=== PATIENT | female | born 1960 | race African-American/Black ===

== ENCOUNTER 2016-09-02 12:33 | Observation (INO) | payer MEDICARE, OTHER ==
[~2016-09-02] VITALS: Ht 144.8 cm; Wt 58.0 kg
[~2016-09-02 12:33] MED LIST: DILTCD300 PO; FLEX10TA PO; LANSO30 PO; LORT5TAB PO; NORV100C PO; REYA150C4 PO; TRUVTAB2 PO; VENL25TA14 PO
[2016-09-02 12:42] VITALS: BP 166/77; PULSE 73; RESP 16; TEMP 98.1; O2SAT 98
[2016-09-02] MEDS ORDERED: SODIUM CHLOR 0.9% 1000 ML INJ 1,000 ML IV SCH ×3 (13:35→17:00)
[2016-09-02] MEDS ORDERED: FAMOTIDINE 20 MG/2 ML VIAL IV PUSH ONE (13:45)
[2016-09-02] MEDS ORDERED: MORPHINE SULFATE 4 MG/ML INJ IV PUSH ONE (13:45)
[2016-09-02] MEDS ORDERED: SODIUM CHLORIDE 0.9% FLUSH 5 ML FLUSH IVF PRN (13:45)
[2016-09-02] MEDS ORDERED: ONDANSETRON HCL 4 MG/2 ML VIAL IVP ONE (13:45)
--- NOTE | 2016-09-02 13:53 | PD ---
HPI Chief Complaint: Abdominal Pain Time Seen by Provider: 13:49 Travel History International Travel<30 days: No Contact w/Intl Traveler<30days: No Traveled to known affect area: No History of Present Illness HPI 56-year-old female that presents to the ED for evaluation of epigastric abdominal pain with nausea and vomiting and diarrhea for the past 3 days. Per patient nothing makes it better or worse. Per patient she can't keep anything down. The patient. She discomfort 6 out of 10. She has not seen anybody for this. Per patient her gallbladder was removed. She still has her appendix. Denies any chest pain or shortness of breath but does the family that she's had some shortness of breath and location for the past year. She does have multiple allergies to different antibiotics. She states that her only medical history is HIV and she states that she is compliant with her medications and that her viral load is negative and her CD4 count is good although she cannot really give me the number. She tells me that she follows with infectious disease from the health Department chronically. She denies any other symptom at this time. Per patient the pain is mainly on the left upper quadrant. Has not taken anything for this as again she cannot keep much down. She denies any recent surgeries. No recent travel. No one else is sick in her house. No radiation of the pain. PFSH Past Medical History Arthritis: No Asthma: No Autoimmune Disease: No Blood Disorders: No Heart Rhythm Problems: No Cancer: No Cardiovascular Problems: No High Cholesterol: No Chemotherapy: No Chest Pain: Yes Congestive Heart Failure: No COPD: No Cerebrovascular Accident: No Diminished Hearing: No Gastrointestinal Disorders: No GERD: No Glaucoma: No Hepatitis: No Hiatal Hernia: No Hypertension: Yes Immune Disorder: Yes (HIV+) Kidney Stones: No Musculoskeletal: Yes (ankle surgery) Neurologic: No Psychiatric: No Reproductive: No Respiratory: No Myocardial Infarction: No Radiation Therapy: No Renal Failure: No Seizures: No Sleep Apnea: No Thyroid Disease: No Ulcer: No PNEUMOCCOCAL Vaccine (Year): 2009 ?: Not Menopausal: Yes : 4 Tubal Ligation: Yes Past Surgical History AICD: No Cholecystectomy: Yes Genitourinary Surgery: No Pacemaker: No Social History Alcohol Use: No (WINE RARELY) Tobacco Use: No Substance Use: No Allergies-Medications (Allergen,Severity, Reaction): Coded Allergies: Macrobid (Verified Allergy, Severe, Swelling, 01/07/12) Nitrofurantoin (Verified Allergy, Severe, Itching, 03/10/12) Septra (Verified Allergy, Severe, Itching, 03/10/12) Sulfa (Verified Allergy, Severe, Itching, 03/10/12) Trimethoprim (Verified Allergy, Severe, Itching, 03/10/12) Aspirin (Verified Adverse Reaction, Severe, VOMITING, 03/10/12) Reported Meds & Prescriptions Reported Meds & Active Scripts Active Reported Crestor (Rosuvastatin Calcium) 10 Mg Tab 10 Mg PO DAILY Aspirin 81 (Aspirin) 81 Mg Tabdr 81 Mg PO DAILY Tribenzor (Rudqvtvssh-Ujuqdmrcrp-Oywgojfyrewunfcmdvx) 20-5-12.5 mg Tab 1 Tab PO DAILY Valacyclovir (Valacyclovir HCl) 500 Mg Tab 500 Mg PO DAILY Lamivudine 300 Mg Tab 300 Mg PO DAILY Tivicay (Dolutegravir Sodium) 50 Mg Tab 50 Mg PO DAILY Reyataz (Atazanavir) 200 Mg Cap 200 Mg PO DAILY Intelence (Etravirine) 200 Mg Tab 200 Mg PO DAILY Review of Systems General / Constitutional: No: Fever, Chills, Weight Gain, Weight Loss, Other Eyes: No: Diploplia, Blurred Vision, Photophobia, Drainage, Redness, Foreign Body Sensation, Pain, Tearing, Blind Spots, Visual changes, Blindness, Other HENT: No: Headaches, Vertigo, Lightheadedness, Sore Throat, Rhinitis, Rhinorrhea, Congestion, Nosebleed, Neck Stiffness, Neck Pain, Masses, Gingival Bleeding, Dental Difficulties, Ear Discharge, Earache, Other Cardiovascular: No: Chest Pain or Discomfort, Palpitations, Irregular Rhythm, Tachycardia, Diaphoresis, Syncope, Dyspnea on exertion, Varicosities, Edema, Cyanosis, Varicosities, Phlebitis, Claudication, Other Respiratory: Positive: Shortness of Breath, No: Cough, Wheezing, Sneezing, Orthopnea, Hemoptysis, Stridor, Night Sweats, Pleuritic Pain, Other Gastrointestinal: Positive: Nausea, Vomiting, Diarrhea, Abdominal Pain, Changes in Bowel Habits, No: Hematemesis, Hematochezia, Constipation, Indigestion, Dysphagia, Loss of Appetite, Other Genitourinary: No: Urgency, Frequency, Dysuria, Nocturia, Hematuria, Decreased Urinary Output, Oliguria, Hesitancy, Dribbling, Incontinence, Pelvic Pain, Flank Pain, Dyspareunia, Discharge, Dysmenorrhea, Menorrhagia, Metorrhagia, Vaginal Bleeding, Other Musculoskeletal: No: Myalgias, Arthralgias, Limited ROM, Weakness, Cramping, Edema, Pain, Atrophy, Other Skin: No Rash, No Itching, No Dryness, No Lumps, No Hives, No Change in Pigmentation, No Change in nails, No Alopecia, No Lesions, No Breast Lumps, No Breast Tenderness, No Breast Swelling, No Other Neurologic: No: Weakness, Dizziness, Syncope, Focal Abnormalities, Coordination Problem, Tremor, Ataxia, Headache, Change in Mentation, Slurred Speech, Paresthesia, Incontinence, Seizures, Sensory Disturbance, Other Psychiatric: No: Anxiety, Depression, Suicidal Ideations, Disorder of Thought, Mood Disorder, Substance Abuse, Homicidal Ideation, Other Endocrine: No: Heat Intolerance, Cold Intolerance, Polyuria, Polydipsia, Other Hematologic/Lymphatic: No: Easy Bruising, Lymph Node Enlargement, Other Physical Exam Narrative GENERAL: SKIN: Warm and dry. HEAD: Atraumatic. Normocephalic. EYES: Pupils equal and round. No scleral icterus. No injection or drainage. ENT: No nasal bleeding or discharge. Mucous membranes pink and moist. Tongue is midline. No uvula deviation. NECK: Trachea midline. No JVD. CARDIOVASCULAR: Regular rate and rhythm. No murmurs, S3, S4. RESPIRATORY: No accessory muscle use. Clear to auscultation. Breath sounds equal bilaterally. GASTROINTESTINAL: Abdomen soft, patient has reproducible tenderness to palpation on the epigastric area. Mainly on the left upper quadrant. Nondistended. Hepatic and splenic margins not palpable. MUSCULOSKELETAL: Extremities without clubbing, cyanosis, or edema. No obvious deformities. Full range of motion of the upper and lower extremities bilaterally. 2+ pulses bilaterally. NEUROLOGICAL: Awake and alert. No obvious cranial nerve deficits. Motor grossly within normal limits. Five out of 5 muscle strength in the arms and legs. Normal speech. PSYCHIATRIC: Appropriate mood and affect; insight and judgment normal. Data Data Last Documented VS Vital Signs Date Time Temp Pulse Resp B/P Pulse Ox O2 Delivery O2 Flow Rate FiO2 09/02/16 13:40 18 09/02/16 12:42 98.1 73 166/77 98 Orders Complete Blood Count With Diff (09/02/16 13:35) Comprehensive Metabolic Panel (09/02/16 13:35) Lipase (09/02/16 13:35) Urinalysis - C+S If Indicated (09/02/16 13:35) Iv Access Insert/Monitor (09/02/16 13:35) Sodium Chlor 0.9% 1000 Ml Inj (Ns 1000 M (09/02/16 13:35) Sodium Chloride 0.9% Flush (Ns Flush) (09/02/16 13:45) Chest, Single Ap (09/02/16 13:42) Morphine Inj (Morphine Inj) (09/02/16 13:45) Ondansetron Inj (Zofran Inj) (09/02/16 13:45) Famotidine Inj (Pepcid Inj) (09/02/16 13:45) Ct Abd/Pel W Iv Contrast(Rout) (09/02/16 ) Iohexol 350 Inj (Omnipaque 350 Inj) (09/02/16 15:16) Pantoprazole Inj (Protonix Inj) (09/02/16 17:00) Pantoprazole Inj (Protonix Inj) (09/02/16 17:00) Sodium Chlor 0.9% 1000 Ml Inj (Ns 1000 M (09/02/16 16:04) Admit Order (Ed Use Only) (09/02/16 16:18) Labs Laboratory Tests Test 09/02/16 13:45 White Blood Count 4.8 TH/MM3 Red Blood Count 3.97 MIL/MM3 Hemoglobin 12.9 GM/DL Hematocrit 38.7 % Mean Corpuscular Volume 97.4 FL Mean Corpuscular Hemoglobin 32.5 PG Mean Corpuscular Hemoglobin 33.4 % Concent Red Cell Distribution Width 13.6 % Platelet Count 251 TH/MM3 Mean Platelet Volume 9.2 FL Neutrophils (%) (Auto) 44.6 % Lymphocytes (%) (Auto) 41.5 % Monocytes (%) (Auto) 10.3 % Eosinophils (%) (Auto) 3.2 % Basophils (%) (Auto) 0.4 % Neutrophils # (Auto) 2.2 TH/MM3 Lymphocytes # (Auto) 2.0 TH/MM3 Monocytes # (Auto) 0.5 TH/MM3 Eosinophils # (Auto) 0.2 TH/MM3 Basophils # (Auto) 0.0 TH/MM3 CBC Comment DIFF FINAL Differential Comment Urine Color YELLOW Urine Turbidity HAZY Urine pH 5.5 Urine Specific Borden 1.026 Urine Protein TRACE mg/dL Urine Glucose (UA) NEG mg/dL Urine Ketones 10 mg/dL Urine Occult Blood TRACE Urine Nitrite NEG Urine Bilirubin NEG Urine Urobilinogen LESS THAN 2.0 MG/DL Urine Leukocyte Esterase LARGE Urine RBC 5 /hpf Urine WBC 8 /hpf Urine Squamous Epithelial 7 /hpf Cells Urine Bacteria OCC /hpf Urine Mucus FEW /lpf Microscopic Urinalysis Comment CULT NOT INDICATED Sodium Level 140 MEQ/L Potassium Level 3.4 MEQ/L Chloride Level 104 MEQ/L Carbon Dioxide Level 28.8 MEQ/L Anion Gap 7 MEQ/L Blood Urea Nitrogen 17 MG/DL Creatinine 1.00 MG/DL Estimat Glomerular Filtration 69 ML/MIN Rate Random Glucose 80 MG/DL Calcium Level 9.2 MG/DL Total Bilirubin 0.3 MG/DL Aspartate Amino Transf 28 U/L (AST/SGOT) Alanine Aminotransferase 29 U/L (ALT/SGPT) Alkaline Phosphatase 81 U/L Total Protein 7.8 GM/DL Albumin 3.8 GM/DL Lipase 84 U/L [facility] Medical Decision Making Medical Screen Exam Complete: Yes Emergency Medical Condition: Yes Medical Record Reviewed: Yes Interpretation(s) CBC & BMP Diagram 09/02/16 13:45 LFTs and lipase within normal limits. Urine shows signs of UTI Last Impressions Chest X-Ray 09/02/16 1342 Signed Impressions: Service Date/Time: August 13:57 - CONCLUSION: Underinflation with atelectasis at the lung bases. Otherwise, no acute finding is identified. Mao Marion MD Abdomen/Pelvis CT 09/02/16 0000 Signed Impressions: Service Date/Time: August 14:48 - CONCLUSION: 1. There is wall thickening and submucosal edema involving the duodenal bulb and proximal second portion of the duodenum. Findings could represent an inflammatory or infectious process. 2. There are 2 left uterine masses measuring up to 14 mm. Although incompletely characterized on this study the appearance is suggestive of uterine fibroids. Mao Marion MD Differential Diagnosis Abdominal pain versus gastroenteritis versus gastritis versus epigastric pain versus peptic ulcer disease versus normal exam Narrative Course 56-year-old female that presents to the ED for evaluation of abdominal pain. Patient was properly examined and was found to have signs and symptoms consistent with appears to be gastritis versus gastroenteritis. Labs and imaging will be ordered. Labs and imaging showed possible UTI with duodenitis. Case was discussed in my attending who recommends speaking with GI. I spoke with Dr. Collins from GI who was made aware of all findings including HIV positive and recommends started on PPI any patient is stable he can follow-up outpatient. Patient was reassessed and still feels pretty lousy per patient and cannot keep anything down. Case discussed with my attending who agrees with admission secondary to his discomfort. Patient was started on PPIs. Hepatitis was patient he agreed to admission. Procedures EKG Prior to Arrival: No Diagnosis Primary Impression: Duodenitis Additional Impressions: Human immunodeficiency virus (HIV) positive Vomiting Qualified Code: R11.14 - Bilious vomiting with nausea Admitting Information Admitting Physician Requests: Observation Adalberto Kapoor Sep 02, 2016 13:53
[2016-09-02 14:08] LABS: AUTOMATED NEUTROPHIL # 2.2 TH/MM3 (1.8-7.7); BASOPHIL % 0.4 % (0.0-2.0); EOSINOPHIL # 0.2 TH/MM3 (0-0.4); EOSINOPHIL % 3.2 % (0.0-4.0); HEMATOCRIT 38.7 % (35.0-46.0); HEMO FLAGS DIFF FINAL; LYMPH % 41.5 % (9.0-44.0); MEAN CELL VOLUME 97.4 FL (80.0-100.0); MEAN CORPUSCULAR HEMOGLOBIN 32.5 PG (27.0-34.0); MEAN CORPUSCULAR HGB CONC 33.4 % (32.0-36.0); MONO % 10.3 % (0.0-8.0); NEUT % 44.6 % (16.0-70.0); PLATELET COUNT 251 TH/MM3 (150-450); RED BLOOD COUNT 3.97 MIL/MM3 (4.00-5.30); RED CELL DISTRIBUTION WIDTH 13.6 % (11.6-17.2); WHITE BLOOD COUNT 4.8 TH/MM3 (4.0-11.0)
[2016-09-02 14:15] LABS: BACTERIA, URINE OCC /hpf; BLOOD, URINE TRACE (NEG); COMMENT (UR) CULT NOT INDICATED; CULTURE IF INDICATED CULT NOT INDICATED; GLUCOSE,URINE NEG (NEG); KETONE, URINE 10 mg/dL (NEG); MUCUS URINE FEW /lpf (OCC); NITRITE,URINE NEG (NEG); PH, URINE 5.5 (5.0-8.5); SQUAMOUS EPITHELIAL CELL URINE 7 /hpf (0-5); URINE COLOR YELLOW (YELLW/STRAW)
[2016-09-02 14:24] LABS: ALT (GPT) 29 U/L (10-53); ANION GAP 7 MEQ/L (5-15); AST (GOT) 28 U/L (15-37); BICARBONATE 28.8 MEQ/L (21.0-32.0); BLOOD UREA NITROGEN 17 MG/DL (7-18); CHLORIDE 104 MEQ/L (98-107); GLOMERULAR FILTRATION RATE 69 ML/MIN (>89); POTASSIUM 3.4 MEQ/L (3.5-5.1); SODIUM (NA) 140 MEQ/L (136-145)
[2016-09-02 14:26] LABS: ALKALINE PHOSPHATASE 81 U/L (45-117); TOTAL BILIRUBIN ADULT 0.3 MG/DL (0.2-1.0)
--- NOTE | 2016-09-02 14:56 | RADRPT ---
EXAM DATE/TIME: 09/02/2016 13:57 [facility] COMPARISON: CHEST SINGLE AP, October 02, 2011, 21:19. INDICATIONS : Short of breath. MEDICAL HISTORY : Hypertension. SURGICAL HISTORY : None. ENCOUNTER: Initial ACUITY: 1 day PAIN SCORE: 0/10 LOCATION: Bilateral chest FINDINGS: Portable AP view of the chest demonstrates a normal-sized cardiac silhouette. No effusion, consolidat ion, or pneumothorax is visualized. The bones and soft tissues demonstrate no acute abnormality. Lung s are underinflated there are linear opacities at both lung bases. CONCLUSION: Underinflation with atelectasis at the lung bases. Otherwise, no acute finding is identified. Mao Marion MD on September 02, 2016 at 14:54 Board Certified Radiologist. This report was verified electronically.
[2016-09-02] MEDS ORDERED: IOHEXOL 350 MG/ML 10 ML VIAL (for RAD DIAG) IV ONE (15:16)
--- NOTE | 2016-09-02 15:40 | RADRPT ---
EXAM DATE/TIME: 09/02/2016 14:48 [facility] COMPARISON: No previous studies available for comparison. INDICATIONS : Epigastric pain with nausea and vomiting. IV CONTRAST: 92 cc Omnipaque 350 (iohexol) IV ORAL CONTRAST: No oral contrast ingested. RADIATION DOSE: 9.96 CTDIvol (mGy) MEDICAL HISTORY : Hypertension. SURGICAL HISTORY : Cholecystectomy. Tubal ligation. ENCOUNTER: Initial ACUITY: 3 days PAIN SCALE: 5/10 LOCATION: Bilateral upper quadrant TECHNIQUE: Volumetric scanning of the abdomen and pelvis was performed. Using automated exposure control and ad justment of the mA and/or kV according to patient size, radiation dose was kept as low as reasonably achievable to obtain optimal diagnostic quality images. FINDINGS: LOWER LUNGS: The visualized lower lungs are clear. LIVER: Homogeneous density with a 5 mm low-density lesion in the right posterior liver that is too small to characterize. There is no dilation of the biliary tree. Gallbladder is not visualized. SPLEEN: Normal size without lesion. PANCREAS: Within normal limits. KIDNEYS: Normal in size and shape. There is no mass, stone or hydronephrosis. There is a 4 mm low-density les ion in the lower pole the right kidney that is too small to characterize. ADRENAL GLANDS: Within normal limits. VASCULAR: There is no aortic aneurysm. There is mild atherosclerotic disease. BOWEL/MESENTERY: There is wall thickening and submucosal edema of the duodenal bulb and proximal second portion of the duodenum. Small hiatal hernia is present. There is no free intraperitoneal air. Trace free fluid is present within the pelvis. ABDOMINAL WALL: Within normal limits. RETROPERITONEUM: There is no lymphadenopathy. BLADDER: No wall thickening or mass. REPRODUCTIVE: There are 2 hypoenhancing masses in the left uterus, one in the fundus and the other in the left body measuring 14 mm and 9 mm, respectively. No adnexal abnormality is seen. INGUINAL: There is no lymphadenopathy or hernia. MUSCULOSKELETAL: No acute osseous abnormality is identified. CONCLUSION: 1. There is wall thickening and submucosal edema involving the duodenal bulb and proximal second port ion of the duodenum. Findings could represent an inflammatory or infectious process. 2. There are 2 left uterine masses measuring up to 14 mm. Although incompletely characterized on this study the appearance is suggestive of uterine fibroids. Mao Marion MD on September 02, 2016 at 15:32 Board Certified Radiologist. This report was verified electronically.
[2016-09-02] MEDS ORDERED: DOLU1TAB PO (16:13)
[2016-09-02] MEDS ORDERED: ROSU10 PO (16:13)
[2016-09-02] MEDS ORDERED: LAMI1TAB8 PO (16:13)
[2016-09-02] MEDS ORDERED: TRIBTAB PO (16:13)
[2016-09-02] MEDS ORDERED: ATAZ200 PO (16:13)
[2016-09-02] MEDS ORDERED: INTE200T PO (16:13)
[2016-09-02] MEDS ORDERED: VALA500T PO (16:13)
[2016-09-02] MEDS ORDERED: ASPI-110 PO (16:13)
[2016-09-02] MEDS ORDERED: POTASSIUM CHLORIDE 10 MEQ CONTROLLED RELEASE TAB PO ONE (16:30)
[2016-09-02] MEDS ORDERED: SODIUM CHLORIDE 0.9% FLUSH 5 ML FLUSH FLUSH PRN (16:30)
[2016-09-02] MEDS ORDERED: SENNOSIDES 8.6 MG TAB PO PRN (16:30)
[2016-09-02] MEDS ORDERED: BISACODYL 10 MG SUPP PR PRN (16:30)
[2016-09-02] MEDS ORDERED: METOCLOPRAMIDE HCL 10 MG/2 ML VIAL IV PUSH PRN (16:30)
[2016-09-02] MEDS ORDERED: PROCHLORPERAZINE 25 MG SUPP PR PRN (16:30)
[2016-09-02] MEDS ORDERED: ONDANSETRON HCL 4 MG/2 ML VIAL IVP PRN (16:30)
[2016-09-02] MEDS ORDERED: ACETAMINOPHEN 325 MG TAB PO PRN (16:30)
[2016-09-02] MEDS: PANTOPRAZOLE INJ 80 MG in SODIUM CHLORIDE 0.9% INJ 100 ML IV SCH (16:52)
[2016-09-02] MEDS: cefTRIAXone INJ 1,000 MG in SODIUM CHLORIDE 0.9% INJ 100 ML IV SCH (16:57)
[2016-09-02] MEDS: PANTOPRAZOLE SODIUM 40 MG VIAL IV PUSH SCH (16:58)
[2016-09-02] MEDS: ENOXAPARIN SODIUM 40 MG/0.4 ML SYRINGE SQ SCH (16:59)
[2016-09-02] MEDS ORDERED: PANTOPRAZOLE INJ 80 MG in SODIUM CHLORIDE 0.9% INJ 35 ML IV ONE (17:00)
[2016-09-02 17:01] VITALS: BP 123/64; PULSE 87; RESP 18; O2SAT 99
--- NOTE | 2016-09-02 17:19 | HHI.HP ---
HPI Service [facility] Primary Care Physician Vijay Herrera MD Admission Diagnosis duodenitis, intractable vomit and nausea, HIV Diagnoses: Chief Complaint: Abdominal pain, nausea vomiting Travel History International Travel<30 Days: No Contact w/Intl Traveler <30 Da: No Traveled to Known Affected Are: No History of Present Illness Patient is a 56-year-old female with primary medical history of hypertension, HIV who came in to the hospital for further evaluation of abdominal pain, nausea vomiting for 3 days. States she also have some diarrhea 2 days ago with vomiting. Otherwise her stool yesterday was regular small amount. Patient complains of abdominal pain all throughout left upper quadrant , right upper quadrant rated 10 over 10 described as spasms then becomes achy and dull, constant, nonradiating, aggravated by movement, does not get relief by rest. Patient states that she has gallbladder removal, she still has her appendix. Patient states that she is compliant with her HIV medication, and her viral load is negative and CD4 count is about 250 that was done by her infectious disease doctor 6 months ago. She has recently visited infectious disease doctor last Tuesday and presented her abdominal pain symptoms it wasn't as bad as it is right now. States that she is unable to keep anything down that she did not eat for about almost 3 days, she also was not able to take her HIV medication for 2 days. Denies SOB/ dyspnea. Denies chest pain, palpitations, headaches, dizziness. Denies fevers, chills. Denies dysuria, hematuria. Labs reviewed. CBC unremarkable except for slightly low RBC at 3.97. Monitor percentage 10.3. CMP reviewed slightly low potassium of 3.4. Estimated GFR 69. UA large leukoesterase, few urine mucus, Occ urine bacteria, trace occult blood, urine ketones 10 CT of the abdomen and pelvis showed there is a wall thickening and submucosal edema involving the duodenal bulb and proximal second portion of the duodenum. Findings could represent an inflammatory or infectious process. There are 2 left uterine masses measuring up to 14 mm. Although incompletely characterized on this study does appearance is suggestive of uterine fibroids. Chest x-ray showed underinflation with atelectasis at the lung bases. Otherwise , no acute findings identified. Review of Systems Except as stated in HPI: all other systems reviewed are Neg Past Family Social History Past Medical History HIV HTN Past Surgical History Gallbladder removal surgery Reported Medications Crestor (Rosuvastatin Calcium) 10 Mg Tab 10 Mg PO DAILY Aspirin 81 (Aspirin) 81 Mg Tabdr 81 Mg PO DAILY Tribenzor (Yupavgzdbn-Tgzqqeymgr-Uephjruofdycxcfamfz) 20-5-12.5 mg Tab 1 Tab PO DAILY Valacyclovir (Valacyclovir HCl) 500 Mg Tab 500 Mg PO DAILY Lamivudine 300 Mg Tab 300 Mg PO DAILY Tivicay (Dolutegravir Sodium) 50 Mg Tab 50 Mg PO DAILY Reyataz (Atazanavir) 200 Mg Cap 200 Mg PO DAILY Intelence (Etravirine) 200 Mg Tab 200 Mg PO DAILY Allergies: Coded Allergies: Macrobid (Verified Allergy, Severe, Swelling, 01/07/12) Nitrofurantoin (Verified Allergy, Severe, Itching, 03/10/12) Septra (Verified Allergy, Severe, Itching, 03/10/12) Sulfa (Verified Allergy, Severe, Itching, 03/10/12) Trimethoprim (Verified Allergy, Severe, Itching, 03/10/12) Aspirin (Verified Adverse Reaction, Severe, VOMITING, 03/10/12) Active Ordered Medications Current Medications Medications (Trade) Dose Ordered Sig/Leydi Route Start Time Stop Time Status Last Admin Pantoprazole Sodium 80 mg/ Sodium Chloride 35 ml @ 420 mls/hr ONCE ONCE IV 09/02/16 17:00 09/02/16 17:04 Pantoprazole Sodium 80 mg/ Sodium Chloride 100 ml @ 10 mls/hr Q10H IV 09/02/16 17:00 Sodium Chloride 1,000 ml @ 1,000 mls/hr Q1H IV 09/02/16 16:04 09/02/16 17:03 (NS 1000 ml Inj) 1,000 ml @ 100 mls/hr Q10H IV 09/02/16 17:00 (NS Flush) 2 ml UNSCH PRN FLUSH 09/02/16 16:30 (NS Flush) 2 ml BID FLUSH 09/02/16 21:00 (Tylenol) 650 mg Q4H PRN PO 09/02/16 16:30 (Zofran Inj) 4 mg Q6H PRN IVP 09/02/16 16:30 (Compazine Supp) 25 mg Q12H PRN VT 09/02/16 16:30 (Dulcolax Supp) 10 mg DAILY PRN VT 09/02/16 16:30 (Colace) 100 mg Q12H PO 09/02/16 18:00 (Senokot) 17.2 mg Q12H PRN PO 09/02/16 16:30 Enoxaparin Sodium 40 mg 40 mg Q24H SQ 09/02/16 17:00 (Rocephin Inj/NS Inj) 100 ml @ 200 mls/hr Q24H IV 09/02/16 17:00 (Protonix Inj) 40 mg Q24H IV PUSH 09/02/16 17:00 (Reglan Inj) 5 mg Q8H PRN IV PUSH 09/02/16 16:30 (Ecotrin Ec) 81 mg DAILY PO 09/03/16 09:00 (Reyataz) 200 mg DAILY PO 09/03/16 09:00 (Epivir) 300 mg DAILY PO 09/03/16 09:00 (Valtrex) 500 mg DAILY PO 09/03/16 09:00 Non-Formulary Medication 1 tab DAILY PO 09/03/16 09:00 UNV (Lipitor) 20 mg DAILY PO 09/03/16 09:00 (Intelence) 200 mg DAILY PO 09/03/16 09:00 Family History Sister has diabetes Brother has heart attacks 3 Social History Denies alcohol use Denies tobacco use Denies illicit drug use Physical Exam Vital Signs Vital Signs Date Time Temp Pulse Resp B/P Pulse Ox O2 Delivery O2 Flow Rate FiO2 09/02/16 13:40 18 09/02/16 12:42 98.1 73 16 166/77 98 Physical Exam GENERAL: This is a pleasant thin appearing lady, in no apparent distress, but in pain. SKIN: No rashes, ecchymoses or lesions. Cool and dry. HEAD: Atraumatic. Normocephalic. No temporal or scalp tenderness. EYES: Pupils equal round and reactive. Extraocular motions intact. No scleral icterus. No injection or drainage. ENT: Nose without bleeding. Throat without erythema. Uvula midline. Airway patent. Dry oral mucosa NECK: Trachea midline. No JVD or lymphadenopathy. Supple, nontender, no meningeal signs. CARDIOVASCULAR: Regular rate and rhythm without murmurs, gallops, or rubs. RESPIRATORY: Clear to auscultation. Breath sounds equal bilaterally. No wheezes , rales, or rhonchi. GASTROINTESTINAL: Abdomen soft, tenderness to light palpation left upper quadrant to right upper quadrant, nondistended. Bowel sounds active 4. MUSCULOSKELETAL: Extremities without clubbing, cyanosis, or edema. No joint tenderness, effusion, or edema noted. No calf tenderness. Negative Homans sign bilaterally. NEUROLOGICAL: Awake and alert. Oriented 3. Motor and sensory grossly within normal limits. No focal neuro deficit. Normal speech. Laboratory Laboratory Tests Test 09/02/16 13:45 White Blood Count 4.8 Red Blood Count 3.97 Hemoglobin 12.9 Hematocrit 38.7 Mean Corpuscular Volume 97.4 Mean Corpuscular Hemoglobin 32.5 Mean Corpuscular Hemoglobin 33.4 Concent Red Cell Distribution Width 13.6 Platelet Count 251 Mean Platelet Volume 9.2 Neutrophils (%) (Auto) 44.6 Lymphocytes (%) (Auto) 41.5 Monocytes (%) (Auto) 10.3 Eosinophils (%) (Auto) 3.2 Basophils (%) (Auto) 0.4 Neutrophils # (Auto) 2.2 Lymphocytes # (Auto) 2.0 Monocytes # (Auto) 0.5 Eosinophils # (Auto) 0.2 Basophils # (Auto) 0.0 CBC Comment DIFF FINAL Differential Comment Urine Color YELLOW Urine Turbidity HAZY Urine pH 5.5 Urine Specific [place] 1.026 Urine Protein TRACE Urine Glucose (UA) NEG Urine Ketones 10 Urine Occult Blood TRACE Urine Nitrite NEG Urine Bilirubin NEG Urine Urobilinogen LESS THAN 2.0 Urine Leukocyte Esterase LARGE Urine RBC 5 Urine WBC 8 Urine Squamous Epithelial 7 Cells Urine Bacteria OCC Urine Mucus FEW Microscopic Urinalysis Comment CULT NOT INDICATED Sodium Level 140 Potassium Level 3.4 Chloride Level 104 Carbon Dioxide Level 28.8 Anion Gap 7 Blood Urea Nitrogen 17 Creatinine 1.00 Estimat Glomerular Filtration 69 Rate Random Glucose 80 Calcium Level 9.2 Total Bilirubin 0.3 Aspartate Amino Transf 28 (AST/SGOT) Alanine Aminotransferase 29 (ALT/SGPT) Alkaline Phosphatase 81 Total Protein 7.8 Albumin 3.8 Lipase 84 Result Diagram: 09/02/16 1345 09/02/16 1345 Imaging Last Impressions Chest X-Ray 09/02/16 1342 Signed Impressions: Service Date/Time: August 13:57 - CONCLUSION: Underinflation with atelectasis at the lung bases. Otherwise, no acute finding is identified. Mao Marion MD Abdomen/Pelvis CT 09/02/16 0000 Signed Impressions: Service Date/Time: August 14:48 - CONCLUSION: 1. There is wall thickening and submucosal edema involving the duodenal bulb and proximal second portion of the duodenum. Findings could represent an inflammatory or infectious process. 2. There are 2 left uterine masses measuring up to 14 mm. Although incompletely characterized on this study the appearance is suggestive of uterine fibroids. Mao Marion MD Assessment and Plan Problem List: (1) Human immunodeficiency virus (HIV) positive ICD Code: V08 Status: Chronic (2) Vomiting ICD Code: R11.10 Status: Acute (3) Duodenitis ICD Code: K29.80 Status: Acute (4) HLD (hyperlipidemia) ICD Code: E78.5 Status: Acute (5) HTN (hypertension) ICD Code: I10 Status: Acute Assessment and Plan Patient is a 56-year-old female with primary medical history of hypertension, HIV who came in to the hospital for further evaluation of abdominal pain, nausea vomiting for 3 days. States she also have some diarrhea 2 days ago with vomiting. Otherwise her stool yesterday was regular small amount. Patient complains of abdominal pain all throughout left upper quadrant , right upper quadrant rated 10 over 10 described as spasms then becomes achy and dull, constant, nonradiating, aggravated by movement, does not get relief by rest. Patient states that she has gallbladder removal, she still has her appendix. Patient states that she is compliant with her HIV medication, and her viral load is negative and CD4 count is about 250 that was done by her infectious disease doctor 6 months ago. She has recently visited infectious disease doctor last Tuesday and presented her abdominal pain symptoms it wasn't as bad as it is right now. States that she is unable to keep anything down that she did not eat for about almost 3 days, she also was not able to take her HIV medication for 2 days. Abdominal pain, nausea/vomiting duodenitis - pantoprazole 80 mg IV bolus, start pantoprazole 8mg/hr - Reglan 5 mg every 8 hours IV when necessary - Zofran 4 mg every 6 hours when necessary - Compazine 25 mg VT when necessary - NS + 20MEQ K+ 100ml/hr - Consult GI appreciate input. Urinary tract infection - UA positive - Patient was given ceftriaxone in the ED, we will continue ceftriaxone for now. Hypokalemia - potassium replaced - Check BMP marcelino HTN - HCTZ 12.5 mg. monitor BP trend. HIV - continue home meds for HIV HLD - atorvastatin 20 mg daily DVT prop Lovenox Written by Natalia Ascencio, acting as scribe for Dr. Estrella on 09/02/16 at 17:05. The documentation accurately reflects the work performed [id number] by me Dr. Estrella on 09/02/16 at 17:05. Code Status Full code Discussed Condition With Patient, nursing, ED attending Problem Qualifiers (1) Vomiting: Qualified Code: R11.14 - Bilious vomiting with nausea Natalia Arreaga Sep 02, 2016 17:19 Avril Estrella MD Sep 02, 2016 20:47
[2016-09-02] MEDS ORDERED: NS + KCL 20 MEQ INJ 1,000 ML IV SCH (17:30)
[2016-09-02] MEDS: SODIUM CHLOR 0.9% 1000 ML INJ 1,000 ML IV SCH (17:30)
[2016-09-02 17:50] VITALS: BP 136/78; TEMP 98.3
[2016-09-02 17:58] VITALS: BP 132/68; PULSE 80; RESP 17; TEMP 98.4; O2SAT 97
[2016-09-02] MEDS: DOCUSATE SODIUM 100 MG CAP PO SCH (17:59)
[2016-09-02] MEDS: SODIUM CHLORIDE 0.9% FLUSH 5 ML FLUSH FLUSH SCH (21:00)
[2016-09-02 21:36] VITALS: BP 133/74; PULSE 91; RESP 18; TEMP 98.6; O2SAT 94
[2016-09-02 21:41] VITALS: O2SAT 98
[2016-09-03 02:46] VITALS: BP 129/83; PULSE 81; RESP 18; TEMP 98.4; O2SAT 96
[2016-09-03] MEDS: PANTOPRAZOLE INJ 80 MG in SODIUM CHLORIDE 0.9% INJ 100 ML IV SCH ×3 (03:00→23:00)
[2016-09-03] MEDS: SODIUM CHLOR 0.9% 1000 ML INJ 1,000 ML IV SCH ×3 (03:30→23:30)
[2016-09-03] MEDS: DOCUSATE SODIUM 100 MG CAP PO SCH ×2 (06:00→17:12)
[2016-09-03 07:47] LABS: AUTOMATED NEUTROPHIL # 2.4 TH/MM3 (1.8-7.7); BASOPHIL % 0.1 % (0.0-2.0); EOSINOPHIL # 0.1 TH/MM3 (0-0.4); EOSINOPHIL % 1.6 % (0.0-4.0); HEMATOCRIT 33.2 % (35.0-46.0); HEMO FLAGS DIFF FINAL; LYMPH % 35.9 % (9.0-44.0); LYMPHOCYTE # 1.6 TH/MM3 (1.0-4.8); MEAN CORPUSCULAR HEMOGLOBIN 32.5 PG (27.0-34.0); MEAN CORPUSCULAR HGB CONC 33.6 % (32.0-36.0); MONO % 10.2 % (0.0-8.0); NEUT % 52.2 % (16.0-70.0); PLATELET COUNT 233 TH/MM3 (150-450); RED BLOOD COUNT 3.42 MIL/MM3 (4.00-5.30); RED CELL DISTRIBUTION WIDTH 13.7 % (11.6-17.2); WHITE BLOOD COUNT 4.6 TH/MM3 (4.0-11.0)
--- NOTE | 2016-09-03 07:52 | HHI.PR ---
Subjective Remarks Says antiemetics helped some and was able to eat last night. Still with abdominal pain. She is NPO as plan for EGD. Doesn't feel nauseated and did not vomit. Did not have a BM. Plan for EGD. Objective Vitals Vital Signs Date Time Temp Pulse Resp B/P Pulse Ox O2 Delivery O2 Flow Rate FiO2 09/03/16 02:46 98.4 81 18 129/83 96 09/02/16 21:41 98 09/02/16 21:36 98.6 91 18 133/74 94 09/02/16 17:58 98.4 80 17 132/68 97 09/02/16 17:50 98.3 78 18 136/78 98 09/02/16 17:01 87 18 123/64 99 Room Air 09/02/16 13:40 18 09/02/16 12:42 98.1 73 16 166/77 98 Result Diagram: 09/03/16 0557 09/02/16 1345 Imaging Last Impressions Chest X-Ray 09/02/16 1342 Signed Impressions: Service Date/Time: August 13:57 - CONCLUSION: Underinflation with atelectasis at the lung bases. Otherwise, no acute finding is identified. Mao Marion MD Abdomen/Pelvis CT 09/02/16 0000 Signed Impressions: Service Date/Time: August 14:48 - CONCLUSION: 1. There is wall thickening and submucosal edema involving the duodenal bulb and proximal second portion of the duodenum. Findings could represent an inflammatory or infectious process. 2. There are 2 left uterine masses measuring up to 14 mm. Although incompletely characterized on this study the appearance is suggestive of uterine fibroids. Mao Marion MD Objective Remarks GENERAL: This is a pleasant thin appearing female, in no apparent distress. SKIN: No rashes, ecchymoses or lesions. Cool and dry. HEAD: Atraumatic. Normocephalic. No temporal or scalp tenderness. EYES: Pupils equal round and reactive. Extraocular motions intact. No scleral icterus. No injection or drainage. ENT: Nose without bleeding. Throat without erythema. Uvula midline. Airway patent. Dry oral mucosa NECK: Trachea midline. No JVD or lymphadenopathy. Supple, nontender, no meningeal signs. CARDIOVASCULAR: Regular rate and rhythm without murmurs, gallops, or rubs. RESPIRATORY: Clear to auscultation. Breath sounds equal bilaterally. No wheezes , rales, or rhonchi. GASTROINTESTINAL: Abdomen soft, tenderness to light palpation left upper quadrant to right upper quadrant, nondistended. Bowel sounds active 4. MUSCULOSKELETAL: Extremities without clubbing, cyanosis, or edema. No joint tenderness, effusion, or edema noted. No calf tenderness. Negative Homans sign bilaterally. NEUROLOGICAL: Awake and alert. Oriented 3. Motor and sensory grossly within normal limits. No focal neuro deficit. Normal speech. Patient is a 56-year-old female with primary medical history of hypertension, HIV who came in to the hospital for further evaluation of abdominal pain, nausea vomiting for 3 days. States she also have some diarrhea 2 days ago with vomiting. Otherwise her stool yesterday was regular small amount. Patient complains of abdominal pain all throughout left upper quadrant , right upper quadrant rated 10 over 10 described as spasms then becomes achy and dull, constant, nonradiating, aggravated by movement, does not get relief by rest. Patient states that she has gallbladder removal, she still has her appendix. Patient states that she is compliant with her HIV medication, and her viral load is negative and CD4 count is about 250 that was done by her infectious disease doctor 6 months ago. She has recently visited infectious disease doctor last Tuesday and presented her abdominal pain symptoms it wasn't as bad as it is right now. States that she is unable to keep anything down that she did not eat for about almost 3 days, she also was not able to take her HIV medication for 2 days. A/P Problem List: (1) Human immunodeficiency virus (HIV) positive ICD Code: V08 Status: Chronic (2) Vomiting ICD Code: R11.10 Status: Acute (3) Duodenitis ICD Code: K29.80 Status: Acute (4) HLD (hyperlipidemia) ICD Code: E78.5 Status: Acute (5) HTN (hypertension) ICD Code: I10 Status: Acute Assessment and Plan Abdominal pain, nausea/vomiting Duodenitis Pantoprazole 80 mg IV bolus, start pantoprazole drip 8mg/hr Reglan 5 mg every 8 hours IV when necessary Zofran 4 mg every 6 hours when necessary Compazine 25 mg SD when necessary NS + 20MEQ K+ 100ml/hr Consult GI appreciate recommendations. Plan for EGD 09/03 Urinary tract infection - UA positive Patient was given ceftriaxone in the ED, we will continue ceftriaxone for now. Monitor urine cultures. Hypokalemia - potassium replaced. Monitor and replace as need. Check BMP marcelino HTN - HCTZ 12.5 mg. monitor BP trend. HIV - continue home meds for HIV HLD - atorvastatin 20 mg daily DVT prop Lovenox Code Status Full code Discussed Condition With Patient, nurse Problem Qualifiers (1) Vomiting: Qualified Code: R11.14 - Bilious vomiting with nausea Avril Estrella MD Sep 03, 2016 07:52
[2016-09-03 08:03] LABS: BICARBONATE 25.7 MEQ/L (21.0-32.0); POTASSIUM 3.8 MEQ/L (3.5-5.1)
[2016-09-03 08:34] VITALS: BP 135/75; PULSE 80; RESP 18; TEMP 98.4; O2SAT 94
[2016-09-03] MEDS: ATAZANAVIR 200 MG CAP PO SCH (09:00)
[2016-09-03] MEDS ORDERED: ETRAVIRINE 200 MG PO SCH (09:00)
[2016-09-03] MEDS: valACYclovir HCL 500 MG TAB PO SCH (09:00)
[2016-09-03] MEDS: ATORVASTATIN 20 MG TAB PO SCH (09:00)
[2016-09-03] MEDS: ASPIRIN EC 81 MG TABEC PO SCH (09:00)
[2016-09-03] MEDS ORDERED: NON-FORMULARY DRUG (Olmesartan-Amlodipine-Hydrochlorothiazide (Tribenzor) 1 TAB) PO SCH (09:00)
[2016-09-03] MEDS ORDERED: NON-FORMULARY DRUG (Rosuvastatin (Crestor) 10 MG) PO SCH (09:00)
[2016-09-03] MEDS: LOSARTAN 50 MG TAB PO SCH (09:00)
[2016-09-03] MEDS: SODIUM CHLORIDE 0.9% FLUSH 5 ML FLUSH FLUSH SCH ×2 (09:00→21:00)
[2016-09-03] MEDS: ETRAVIRINE 100 MG TAB PO SCH (09:00)
[2016-09-03] MEDS: amLODIPine BESYLATE 5 MG TAB PO SCH (09:00)
[2016-09-03] MEDS: DOLUTEGRAVIR SODIUM 50 MG TAB PO SCH (09:00)
[2016-09-03] MEDS: HYDROCHLOROTHIAZIDE 12.5 MG CAP PO SCH (09:00)
[2016-09-03 09:24] VITALS: BP 135/75; PULSE 80; RESP 18; TEMP 98.4; O2SAT 94
--- NOTE | 2016-09-03 09:43 | PD.CONS ---
HPI History of Present Illness This is a 56 year old female patient who came to the ER for evaluation of nausea , vomiting, and abdominal pain. She started having some mild nausea last . Initially, she did not actually have any vomiting or pain. However, her nausea worsened and then on Tuesday, she felt bloated with a dull ache in her LUQ. This has been constant without radiation, aggravating, or alleviating factors. Although, she does report that she did not try to eat anything because of her nausea. She feels like she has food just sitting in her epigastric area. She also had one episode of loose stool, although she denies any melena or hematochezia. She had some chills, but does not know if she had an actual fever. She does have GERD and takes Prevacid for this. She reports that she has good control of her symptoms. She has been taking aleve twice a day for chronic back pain. She has a remote hx of PUD and last had an EGD about 10 years ago. PFSH Past Medical History HIV HTN GERD Hx PUD Past Surgical History Cholecystectomy EGD Coded Allergies: Macrobid (Verified Allergy, Severe, Swelling, 01/07/12) Nitrofurantoin (Verified Allergy, Severe, Itching, 03/10/12) Septra (Verified Allergy, Severe, Itching, 03/10/12) Sulfa (Verified Allergy, Severe, Itching, 03/10/12) Trimethoprim (Verified Allergy, Severe, Itching, 03/10/12) Aspirin (Verified Adverse Reaction, Severe, VOMITING, 03/10/12) Medications Allergies Coded Allergies Type Severity Reaction Last Updated Verified Macrobid Allergy Severe Swelling 01/07/12 Yes Nitrofurantoin Allergy Severe Itching 03/10/12 Yes Septra Allergy Severe Itching 03/10/12 Yes Sulfa Allergy Severe Itching 03/10/12 Yes Trimethoprim Allergy Severe Itching 03/10/12 Yes Aspirin Adverse Reaction Severe VOMITING 03/10/12 Yes Active Scripts Medications Dose Route/Sig Days Date Category Crestor (Rosuvastatin Calcium) 10 Mg Tab 10 Mg PO DAILY 09/02/16 Reported Aspirin 81 (Aspirin) 81 Mg Tabdr 81 Mg PO DAILY 09/02/16 Reported Tribenzor (Akeybzxknd-Rlmlncibuo-Cjoegskcxeyfmohisop) 20-5-12.5 mg Tab 1 Tab PO DAILY 09/02/16 Reported Valacyclovir (Valacyclovir HCl) 500 Mg Tab 500 Mg PO DAILY 09/02/16 Reported Lamivudine 300 Mg Tab 300 Mg PO DAILY 09/02/16 Reported Tivicay (Dolutegravir Sodium) 50 Mg Tab 50 Mg PO DAILY 09/02/16 Reported Reyataz (Atazanavir) 200 Mg Cap 200 Mg PO DAILY 09/02/16 Reported Intelence (Etravirine) 200 Mg Tab 200 Mg PO DAILY 09/02/16 Reported Family History Sister has diabetes Brother has heart attacks 3 Social History Denies alcohol use Denies tobacco use Denies illicit drug use Review of Systems Constitutional: COMPLAINS OF: Fatigue, Chills, Change in appetite, DENIES: Fever, Weight loss Respiratory: DENIES: Cough Cardiovascular: DENIES: Chest pain Gastrointestinal: COMPLAINS OF: Abdominal pain, Diarrhea (one loose stool), Nausea, Vomiting, Swelling of Abdomen, Heartburn, DENIES: Black stools, Bloody stools, Constipation Musculoskeletal: COMPLAINS OF: Joint pain, Back pain Integumentary: DENIES: Abnormal pigmentation, Rash Neurologic: COMPLAINS OF: Headache Psychiatric: DENIES: Confusion GI Exam Vitals I&O Vital Signs Date Time Temp Pulse Resp B/P Pulse Ox O2 Delivery O2 Flow Rate FiO2 09/03/16 09:24 98.4 80 18 135/75 94 09/03/16 08:34 98.4 80 18 135/75 94 09/03/16 02:46 98.4 81 18 129/83 96 09/02/16 21:41 98 09/02/16 21:36 98.6 91 18 133/74 94 09/02/16 17:58 98.4 80 17 132/68 97 09/02/16 17:50 98.3 78 18 136/78 98 09/02/16 17:01 87 18 123/64 99 Room Air 09/02/16 13:40 18 09/02/16 12:42 98.1 73 16 166/77 98 Imaging Last Impressions Chest X-Ray 09/02/16 1342 Signed Impressions: Service Date/Time: August 13:57 - CONCLUSION: Underinflation with atelectasis at the lung bases. Otherwise, no acute finding is identified. Mao Marion MD Abdomen/Pelvis CT 09/02/16 0000 Signed Impressions: Service Date/Time: August 14:48 - CONCLUSION: 1. There is wall thickening and submucosal edema involving the duodenal bulb and proximal second portion of the duodenum. Findings could represent an inflammatory or infectious process. 2. There are 2 left uterine masses measuring up to 14 mm. Although incompletely characterized on this study the appearance is suggestive of uterine fibroids. Mao Marion MD Laboratory Test 09/02/16 09/03/16 13:45 05:57 White Blood Count 4.8 TH/MM3 4.6 TH/MM3 Red Blood Count 3.97 MIL/MM3 3.42 MIL/MM3 Hemoglobin 12.9 GM/DL 11.1 GM/DL Hematocrit 38.7 % 33.2 % Mean Corpuscular Volume 97.4 FL 97.0 FL Mean Corpuscular Hemoglobin 32.5 PG 32.5 PG Mean Corpuscular Hemoglobin 33.4 % 33.6 % Concent Red Cell Distribution Width 13.6 % 13.7 % Platelet Count 251 TH/MM3 233 TH/MM3 Mean Platelet Volume 9.2 FL 9.2 FL Neutrophils (%) (Auto) 44.6 % 52.2 % Lymphocytes (%) (Auto) 41.5 % 35.9 % Monocytes (%) (Auto) 10.3 % 10.2 % Eosinophils (%) (Auto) 3.2 % 1.6 % Basophils (%) (Auto) 0.4 % 0.1 % Neutrophils # (Auto) 2.2 TH/MM3 2.4 TH/MM3 Lymphocytes # (Auto) 2.0 TH/MM3 1.6 TH/MM3 Monocytes # (Auto) 0.5 TH/MM3 0.5 TH/MM3 Eosinophils # (Auto) 0.2 TH/MM3 0.1 TH/MM3 Basophils # (Auto) 0.0 TH/MM3 0.0 TH/MM3 CBC Comment DIFF FINAL DIFF FINAL Differential Comment Urine Color YELLOW Urine Turbidity HAZY Urine pH 5.5 Urine Specific [place] 1.026 Urine Protein TRACE mg/dL Urine Glucose (UA) NEG mg/dL Urine Ketones 10 mg/dL Urine Occult Blood TRACE Urine Nitrite NEG Urine Bilirubin NEG Urine Urobilinogen LESS THAN 2.0 MG/DL Urine Leukocyte Esterase LARGE Urine RBC 5 /hpf Urine WBC 8 /hpf Urine Squamous Epithelial 7 /hpf Cells Urine Bacteria OCC /hpf Urine Mucus FEW /lpf Microscopic Urinalysis Comment CULT NOT INDICATED Sodium Level 140 MEQ/L 142 MEQ/L Potassium Level 3.4 MEQ/L 3.8 MEQ/L Chloride Level 104 MEQ/L 110 MEQ/L Carbon Dioxide Level 28.8 MEQ/L 25.7 MEQ/L Anion Gap 7 MEQ/L 6 MEQ/L Blood Urea Nitrogen 17 MG/DL 10 MG/DL Creatinine 1.00 MG/DL 0.75 MG/DL Estimat Glomerular Filtration 69 ML/MIN 97 ML/MIN Rate Random Glucose 80 MG/DL 76 MG/DL Calcium Level 9.2 MG/DL 8.5 MG/DL Total Bilirubin 0.3 MG/DL Aspartate Amino Transf 28 U/L (AST/SGOT) Alanine Aminotransferase 29 U/L (ALT/SGPT) Alkaline Phosphatase 81 U/L Total Protein 7.8 GM/DL Albumin 3.8 GM/DL Lipase 84 U/L Date/Time Procedure Status Source Growth 09/02/16 13:45 Urine Culture Received Urine Clean Catch Pending Physical Examination HEENT: Normocephalic; atraumatic; no jaundice. Throat is clear. NECK: Neck is supple, no JVD, no lymphadenopathy. CHEST: CTA CARDIAC: RRR ABDOMEN: Soft, nondistended, LUQ tenderness; no hepatosplenomegaly; bowel sounds are present in all four quadrants. EXTREMITIES: No clubbing, cyanosis, or edema. SKIN: Normal; no rash; no jaundice. SURGICAL ASSISTANT: No focal deficits; alert and oriented times three. Assessment and Plan Plan ASSESSMENT: - Abdominal pain, nausea, vomiting x one week. Pt reports LUQ bloating/pain with associated n/v. No hematemesis, melena, or hematochezia. Does have remote hx of PUD and has been taking Aleve BID for chronic back pain. Abdomen/Pelvis CT (09/02/16)---> 1. There is wall thickening and submucosal edema involving the duodenal bulb and proximal second portion of the duodenum. Findings could represent an inflammatory or infectious process. 2. There are 2 left uterine masses measuring up to 14 mm. Although incompletely characterized on this study the appearance is suggestive of uterine fibroids. Protonix gtt. NPO. - Abnormal imaging with wall thickening and submucosal edema involving the duodenal bulb and proximal second portion of the duodenum. Protonix gtt. - HIV, on HAART, followed by Dr. Herrera as outpatient. - HTN per primary PLAN: - Plan for egd - Obtain consents - NPO - Protonix - Monitor labs - Supportive care - Further recommendations to follow based on results of above - Pt seen and examined by Dr. Momin and myself and this note is written on his behalf Alondra Bruner Sep 03, 2016 09:43
[2016-09-03] MEDS ORDERED: PROPOFOL 200 MG/20 ML AMP IV ONE (10:32)
[2016-09-03] MEDS ORDERED: LACTATED RINGER'S 1,000 ML BAG IV ONE (10:32)
[2016-09-03 12:00] VITALS: BP 142/85; PULSE 92; RESP 18; TEMP 96.5; O2SAT 96
[2016-09-03] MEDS: NYSTAT/DIPHENHY/LIDO MOUTHWASH (Adult) 120ML SWISH-SWAL SCH ×2 (17:09→21:17)
[2016-09-03] MEDS: PANTOPRAZOLE SODIUM 40 MG VIAL IV PUSH SCH (17:10)
[2016-09-03] MEDS: ENOXAPARIN SODIUM 40 MG/0.4 ML SYRINGE SQ SCH (17:12)
[2016-09-03] MEDS: cefTRIAXone INJ 1,000 MG in SODIUM CHLORIDE 0.9% INJ 100 ML IV SCH (17:25)
[2016-09-03] MEDS: ACETAMINOPHEN/HYDROcodone 325 MG/5 MG TAB PO PRN (18:26)
[2016-09-03 19:42] VITALS: BP 144/74; PULSE 103; RESP 18; TEMP 98.8; O2SAT 98
[2016-09-04] VITALS: BP 127/68; PULSE 84; RESP 21; TEMP 97.8; O2SAT 98
[2016-09-04 03:29] VITALS: BP 131/72; PULSE 94; RESP 18; TEMP 98.7; O2SAT 98
[2016-09-04] MEDS: ACETAMINOPHEN/HYDROcodone 325 MG/5 MG TAB PO PRN (04:19)
[2016-09-04] MEDS: DOCUSATE SODIUM 100 MG CAP PO SCH (06:00)
[2016-09-04 07:12] VITALS: BP 148/82; PULSE 94; RESP 16; TEMP 97.6; O2SAT 98
--- NOTE | 2016-09-04 08:09 | MR ---
cc: PAULINA VARGAS M.D. DATE: 09/03/2016 DATE OF : [address] Estrella. DATE OF SERVICE 09/03/2016 PROCEDURE Upper gastrointestinal endoscopy with biopsy and dilation esophagus. INDICATION 56-year-old lady who has abdominal pain, abnormal CT scan in the duodenal bulb. PROCEDURE After informing the patient about procedure and complication consent was signed. The patient was placed on her left lateral decubitus, adequate sedation was achieved by propofol. The scope was placed in the mouth advanced under video guidance to the second portion of the duodenum scope drawn back to the stomach. Retroflexion was performed. Biopsy from the duodenal bulb and then in the stomach. The guidewire was passed through the scope and then dilator size 17 mm was passed without immediate complications. FINDINGS 1. Esophagus distal esophageal stricture biopsy was done. 2. Irregular Z-line biopsy from the GE junction. 3. Mild gastritis. Biopsy was done. 4. Duodenum severe duodenitis. Biopsy was done from the duodenal bulb. RECOMMENDATIONS 1. Follow-up biopsy. 2. Protonix 40 mg daily. 3. May feed patient. MD CHLOE Schulte/fernie /10:49 AM /8:04 AM
[2016-09-04] MEDS ORDERED: PANT40TA3 PO (08:16)
--- NOTE | 2016-09-04 08:16 | HHI.DS ---
Discharge Summary Admission Date Sep 02, 2016 at 16:20 Discharge Date: Sep 04, 2016 Admitting Diagnosis duodenitis, intractable vomit and nausea, HIV (1) Vomiting ICD Code: R11.10 Diagnosis: Principal (2) Duodenitis ICD Code: K29.80 Diagnosis: Principal (3) HLD (hyperlipidemia) ICD Code: E78.5 Diagnosis: Secondary (4) HTN (hypertension) ICD Code: I10 Diagnosis: Secondary (5) False positive human immunodeficiency virus (HIV) serology ICD Code: Z78.9 Diagnosis: Secondary Procedures EGD Brief History - From Admission Patient is a 56-year-old female with primary medical history of hypertension, HIV who came in to the hospital for further evaluation of abdominal pain, nausea vomiting for 3 days. States she also have some diarrhea 2 days ago with vomiting. Otherwise her stool yesterday was regular small amount. Patient complains of abdominal pain all throughout left upper quadrant , right upper quadrant rated 10 over 10 described as spasms then becomes achy and dull, constant, nonradiating, aggravated by movement, does not get relief by rest. Patient states that she has gallbladder removal, she still has her appendix. Patient states that she is compliant with her HIV medication, and her viral load is negative and CD4 count is about 250 that was done by her infectious disease doctor 6 months ago. She has recently visited infectious disease doctor last Tuesday and presented her abdominal pain symptoms it wasn't as bad as it is right now. States that she is unable to keep anything down that she did not eat for about almost 3 days, she also was not able to take her HIV medication for 2 days. Denies SOB/ dyspnea. Denies chest pain, palpitations, headaches, dizziness. Denies fevers, chills. Denies dysuria, hematuria. Labs reviewed. CBC unremarkable except for slightly low RBC at 3.97. Monitor percentage 10.3. CMP reviewed slightly low potassium of 3.4. Estimated GFR 69. UA large leukoesterase, few urine mucus, Occ urine bacteria, trace occult blood, urine ketones 10 CT of the abdomen and pelvis showed there is a wall thickening and submucosal edema involving the duodenal bulb and proximal second portion of the duodenum. Findings could represent an inflammatory or infectious process. There are 2 left uterine masses measuring up to 14 mm. Although incompletely characterized on this study does appearance is suggestive of uterine fibroids. Chest x-ray showed underinflation with atelectasis at the lung bases. Otherwise , no acute findings identified. CBC/BMP: 09/03/16 0557 09/03/16 0557 Significant Findings Laboratory Tests Test 09/02/16 09/03/16 13:45 05:57 Red Blood Count 3.97 MIL/MM3 3.42 MIL/MM3 (4.00-5.30) (4.00-5.30) Monocytes (%) (Auto) 10.3 % 10.2 % (0.0-8.0) (0.0-8.0) Urine Turbidity HAZY (CLEAR) Urine Ketones 10 mg/dL (NEG) Urine Occult Blood TRACE (NEG) Urine Leukocyte Esterase LARGE (NEG) Urine RBC 5 /hpf (0-3) Urine WBC 8 /hpf (0-5) Urine Bacteria OCC /hpf (NONE) Urine Mucus FEW /lpf (OCC) Potassium Level 3.4 MEQ/L (3.5-5.1) Estimat Glomerular Filtration 69 ML/MIN (>89) Rate Hemoglobin 11.1 GM/DL (11.6-15.3) Hematocrit 33.2 % (35.0-46.0) Chloride Level 110 MEQ/L (98-107) Imaging Last Impressions Chest X-Ray 09/02/16 1342 Signed Impressions: Service Date/Time: August 13:57 - CONCLUSION: Underinflation with atelectasis at the lung bases. Otherwise, no acute finding is identified. Mao Marion MD Abdomen/Pelvis CT 09/02/16 0000 Signed Impressions: Service Date/Time: August 14:48 - CONCLUSION: 1. There is wall thickening and submucosal edema involving the duodenal bulb and proximal second portion of the duodenum. Findings could represent an inflammatory or infectious process. 2. There are 2 left uterine masses measuring up to 14 mm. Although incompletely characterized on this study the appearance is suggestive of uterine fibroids. Mao Marion MD PE at Discharge GENERAL: This is a pleasant thin appearing female, in no apparent distress. SKIN: No rashes, ecchymoses or lesions. Cool and dry. HEAD: Atraumatic. Normocephalic. No temporal or scalp tenderness. EYES: Pupils equal round and reactive. Extraocular motions intact. No scleral icterus. No injection or drainage. ENT: Nose without bleeding. Throat without erythema. Uvula midline. Airway patent. Dry oral mucosa NECK: Trachea midline. No JVD or lymphadenopathy. Supple, nontender, no meningeal signs. CARDIOVASCULAR: Regular rate and rhythm without murmurs, gallops, or rubs. RESPIRATORY: Clear to auscultation. Breath sounds equal bilaterally. No wheezes , rales, or rhonchi. GASTROINTESTINAL: Abdomen soft, tenderness to light palpation left upper quadrant to right upper quadrant, nondistended. Bowel sounds active 4. MUSCULOSKELETAL: Extremities without clubbing, cyanosis, or edema. No joint tenderness, effusion, or edema noted. No calf tenderness. Negative Homans sign bilaterally. NEUROLOGICAL: Awake and alert. Oriented 3. Motor and sensory grossly within normal limits. No focal neuro deficit. Normal speech. Patient is a 56-year-old female with primary medical history of hypertension, HIV who came in to the hospital for further evaluation of abdominal pain, nausea vomiting for 3 days. States she also have some diarrhea 2 days ago with vomiting. Otherwise her stool yesterday was regular small amount. Patient complains of abdominal pain all throughout left upper quadrant , right upper quadrant rated 10 over 10 described as spasms then becomes achy and dull, constant, nonradiating, aggravated by movement, does not get relief by rest. Patient states that she has gallbladder removal, she still has her appendix. Patient states that she is compliant with her HIV medication, and her viral load is negative and CD4 count is about 250 that was done by her infectious disease doctor 6 months ago. She has recently visited infectious disease doctor last Tuesday and presented her abdominal pain symptoms it wasn't as bad as it is right now. States that she is unable to keep anything down that she did not eat for about almost 3 days, she also was not able to take her HIV medication for 2 days. Pt update on day of discharge Feels much better. No n/v/d/c. Tolerates food. Abd pain controlled. No fever or chills. Hospital Course Patient is a 56-year-old female with primary medical history of hypertension, HIV who came in to the hospital for further evaluation of abdominal pain, nausea vomiting for 3 days. States she also have some diarrhea 2 days ago with vomiting. Otherwise her stool yesterday was regular small amount. Patient complains of abdominal pain all throughout left upper quadrant , right upper quadrant rated 10 over 10 described as spasms then becomes achy and dull, constant, nonradiating, aggravated by movement, does not get relief by rest. Patient states that she has gallbladder removal, she still has her appendix. Patient states that she is compliant with her HIV medication, and her viral load is negative and CD4 count is about 250 that was done by her infectious disease doctor 6 months ago. She has recently visited infectious disease doctor last Tuesday and presented her abdominal pain symptoms it wasn't as bad as it is right now. States that she is unable to keep anything down that she did not eat for about almost 3 days, she also was not able to take her HIV medication for 2 days. Abdominal pain, nausea/vomiting Duodenitis Pantoprazole 80 mg IV bolus, start pantoprazole drip 8mg/hr Reglan 5 mg every 8 hours IV when necessary Zofran 4 mg every 6 hours when necessary Compazine 25 mg IN when necessary NS + 20MEQ K+ 100ml/hr Consult GI appreciate recommendations. Plan for EGD 09/03 Urinary tract infection - UA positive Patient was given ceftriaxone in the ED, we will continue ceftriaxone for now. Monitor urine cultures. Hypokalemia - potassium replaced. Monitor and replace as need. Check BMP marcelino HTN - HCTZ 12.5 mg. monitor BP trend. HIV - continue home meds for HIV HLD - atorvastatin 20 mg daily DVT prop Lovenox Improved. DC in fairly good condition, to follow up as OP with PCP and consultants. Pt Condition on Discharge: Stable Discharge Disposition: Discharge Home Discharge Time: <= 30 minutes Discharge Instructions DIET: Follow Instructions for: Heart Healthy Diet Activities you can perform: Regular-No Restrictions Follow up Referrals: Gastroenterology - 2 Weeks PCP Follow-up - 3-5 Days New Medications: Hydrocodone-Acetaminophen (Hinckley) 5-325 mg Tab 1 TAB PO Q6H PRN PAIN #10 Ref 0 TAB Pantoprazole (Pantoprazole) 40 Mg Tab 40 MG PO DAILY Reflux #30 Ref 0 TAB Continued Medications: Aspirin DR (Aspirin 81) 81 Mg Tabdr 81 MG PO HS Ref 0 TAB Atazanavir (Reyataz) 200 Mg Cap 200 MG PO HS Mgmt Viral Infection #30 Ref 0 CAP Dolutegravir (Tivicay) 50 Mg Tab 50 MG PO HS Mgmt Viral Infection #30 Ref 0 TAB Etravirine (Intelence) 200 Mg Tab 200 MG PO HS Mgmt Viral Infection Ref 0 TAB Lamivudine (Lamivudine) 300 Mg Tab 300 MG PO HS Mgmt Viral Infection #30 Ref 0 TAB Jaugncpcfi-Fjfqutauzs-Vqvvomrnlochckjagxv (Tribenzor) 20-5-12.5 mg Tab 1 TAB PO HS Blood Pressure Management #30 Ref 0 TAB Rosuvastatin (Crestor) 10 Mg Tab 10 MG PO HS Cholesterol Management #30 Ref 0 TAB Valacyclovir (Valacyclovir) 500 Mg Tab 500 MG PO HS Mgmt Viral Infection #30 Ref 0 TAB Avril Estrella MD Sep 04, 2016 08:16
[2016-09-04] MEDS ORDERED: NORC5TAB PO (08:27)
--- NOTE | 2016-09-04 10:40 | HHI.GIFU ---
Subjective Remarks Resting in bed. Feeling much better. Tolerating regular diet. States swallowing is much improved. Objective Vitals I&O Vital Signs Date Time Temp Pulse Resp B/P Pulse Ox O2 Delivery O2 Flow Rate FiO2 09/04/16 07:12 97.6 94 16 148/82 98 09/04/16 05:30 14 09/04/16 03:29 98.7 94 18 131/72 98 09/04/16 00:00 97.8 84 21 127/68 98 09/03/16 19:42 98.8 103 18 144/74 98 09/03/16 12:00 96.5 92 18 142/85 96 09/03/16 10:58 97 18 111/77 93 09/03/16 10:48 100 18 111/76 93 09/03/16 10:42 98.6 107 16 112/76 93 I/O 09/03/16 09/03/16 09/03/16 09/04/16 09/04/16 09/04/16 07:00 15:00 23:00 07:00 15:00 23:00 Intake Total 100 ml Balance 100 ml Intake Other 100 ml # Voids 1 Laboratory Date/Time Procedure Status Source Growth 09/02/16 13:45 Urine Culture - Preliminary Resulted Urine Clean Catch NO GROWTH IN 24 HOURS. Imaging Last Impressions Chest X-Ray 09/02/16 1342 Signed Impressions: Service Date/Time: August 13:57 - CONCLUSION: Underinflation with atelectasis at the lung bases. Otherwise, no acute finding is identified. Mao Marion MD Abdomen/Pelvis CT 09/02/16 0000 Signed Impressions: Service Date/Time: August 14:48 - CONCLUSION: 1. There is wall thickening and submucosal edema involving the duodenal bulb and proximal second portion of the duodenum. Findings could represent an inflammatory or infectious process. 2. There are 2 left uterine masses measuring up to 14 mm. Although incompletely characterized on this study the appearance is suggestive of uterine fibroids. Mao Marion MD Physical Exam HEENT: Nrmocephalic; atraumatic; no jaundice. Throat is clear. NECK: Neck is supple, no JVD, no lymphadenopathy. CHEST: CTA CARDIAC: RRR ABDOMEN: Soft, nondistended, nontender; no hepatosplenomegaly; bowel sounds are present in all four quadrants. EXTREMITIES: No clubbing, cyanosis, or edema. SKIN: Normal; no rash; no jaundice. BORDER PATROL AGENT: No focal deficits; alert and oriented times three. Assessment and Plan Plan ASSESSMENT: - Abdominal pain, nausea, vomiting x one week. Pt reports LUQ bloating/pain with associated n/v. No hematemesis, melena, or hematochezia. Does have remote hx of PUD and has been taking Aleve BID for chronic back pain. Abdomen/Pelvis CT (09/02/16)---> 1. There is wall thickening and submucosal edema involving the duodenal bulb and proximal second portion of the duodenum. Findings could represent an inflammatory or infectious process. 2. There are 2 left uterine masses measuring up to 14 mm. Although incompletely characterized on this study the appearance is suggestive of uterine fibroids. S/P EGD (09/03/16)---> esophagus distal esophageal stricture, irregular z line, bx GE junction, mild gastritis, severe duodenitis in duodenum. Pathology pending. Protonix gtt. Tolerating regular diet. Symptoms much improved. - Abnormal imaging with wall thickening and submucosal edema involving the duodenal bulb and proximal second portion of the duodenum. Protonix gtt. - HIV, on HAART, followed by Dr. Herrera as outpatient. - HTN per primary PLAN: - Okay to d/c home from GI standpoint - Await pathology - D/C Protonix Gtt - Protonix 40mg po BID, d/w patient she can take her prevacid BID at home. - FU WYATT 2 weeks - No ETOH - No NSAIDs - Pt seen and examined by Dr. Momin and myself and this note is written on his behalf - Protonix - Monitor labs - Supportive care - Further recommendations to follow based on results of above - Pt seen and examined by Dr. Momin and myself and this note is written on his behalf Alondra Bruner Sep 04, 2016 10:40
[2016-09-04 11:31] VITALS: BP 140/77; PULSE 79; RESP 16; TEMP 98.7; O2SAT 99
[2016-09-04] MEDS: NYSTAT/DIPHENHY/LIDO MOUTHWASH (Adult) 120ML SWISH-SWAL SCH ×2 (12:10→13:00)
[2016-09-04] MEDS: ENOXAPARIN SODIUM 40 MG/0.4 ML SYRINGE SQ SCH (12:11)
[2016-09-04] MEDS: ATAZANAVIR 200 MG CAP PO SCH (12:11)
[2016-09-04] MEDS: DOLUTEGRAVIR SODIUM 50 MG TAB PO SCH (12:12)
[2016-09-04] MEDS: ASPIRIN EC 81 MG TABEC PO SCH (12:13)
[2016-09-04] MEDS: valACYclovir HCL 500 MG TAB PO SCH (12:13)
[2016-09-04] MEDS: ETRAVIRINE 100 MG TAB PO SCH (12:13)
[2016-09-04] MEDS: LOSARTAN 50 MG TAB PO SCH (12:14)
[2016-09-04] MEDS: amLODIPine BESYLATE 5 MG TAB PO SCH (12:14)
[2016-09-04] MEDS: HYDROCHLOROTHIAZIDE 12.5 MG CAP PO SCH (12:15)
[2016-09-04] MEDS: ATORVASTATIN 20 MG TAB PO SCH (12:15)
[2016-09-04] MEDS ORDERED: PANTOPRAZOLE SOD 40 MG DELAYED RELEASE TAB PO SCH (21:00)
== END 2016-09-04 15:02 | disposition home or self-care (01) ==
LOC: NEPE 12:33 → NEDA 16:20 → NEPGCP 17:42
PROVIDERS: ADMIT Hospitalist; ATTEND Hospitalist
DX: K29.80 Duodenitis without bleeding (principal); B20 Human immunodeficiency virus [HIV] disease; R11.14 Bilious vomiting; I10 Essential (primary) hypertension; R07.9 Chest pain, unspecified; Z79.899 Other long term (current) drug therapy; J98.11 Atelectasis; N39.0 Urinary tract infection, site not specified; E78.5 Hyperlipidemia, unspecified; E87.6 Hypokalemia; Z87.11 Personal history of peptic ulcer disease; K22.2 Esophageal obstruction; K22.9 Disease of esophagus, unspecified; K29.70 Gastritis, unspecified, without bleeding
CPT/HCPCS: 00740; 43239; 43248; 71010; 74177; 80048; 80053; 81001; 83690; 85025; 87086; 88305; 88312; 96374; 96375; 97163; 99285; C1769; C9113; G0378; G8987; G8988; J0696; J1650; J2270; J2405; J7030; J7120; Q9967; 76937